=== PATIENT | male | born 1970 | race Caucasian/White ===

== ENCOUNTER 2025-06-22 13:53 | Emergency (ER) | payer MEDICAID ==
[~2025-06-22] VITALS: Ht 177.8 cm; Wt 90.9 kg
[2025-06-22 14:03] VITALS: BP 179/104; PULSE 97; RESP 18; TEMP 98.5; O2SAT 99
--- NOTE | 2025-06-22 14:50 | Physician Documentation ---
History of Present Illness ~ Chief Complaint: Finger pain Stated Complaint: FINGER LAC Time Seen by MD: 15:32 HPI This is a 55-year-old male who presents with a laceration to his left 3rd finger after an accident with a razor knife. Patient reports no injuries and reports no other acute symptoms or concerns. Patient states his last tetanus booster was last year. Medication Reconciliation Allergies: Coded Allergies: No Known Allergies (Unverified , 06/22/25) Review of Systems ROS As stated above in the HPI, otherwise all systems are reviewed and negative. Constitutional: Denies: chills, fever, weakness Eyes: Denies: pain, blurred vision ENT: Denies: ear pain, nose pain, throat pain, mouth pain Respiratory: Denies: cough, shortness of breath Cardiovascular: Denies: chest pain, palpitations Gastrointestinal: Denies: abdominal pain, nausea, vomiting Genitourinary: Denies: burning, dysuria Male Genitalia: Denies: penile discharge, testicular pain Neurological: Denies: headache, dizziness Musculoskeletal: Denies: pain, swelling Integumentary: Denies: rash, lesions Allergic/Immunologic: Denies: hives, itching Hematologic/Lymphatic: Denies: no symptoms reported Psychiatric: Denies: depression, anxiety Physical Exam Vital Signs: Temperature: 98.5, Source: Temporal, Heart Rate: 97, Respiratory Rate: 18, BP: 179/104, Pulse Oximetry: 99, Weight: 90.910 Oxygen Flow Rate: 0 Physical Exam General: Awake and Alert, no acute distress. HEENT: Conjunctiva pink, Sclera clear, Mucus Membranes moist. Neck: Supple without masses and tenderness. Resp: Unlabored. Lungs clear to auscultation bilaterally. Heart: Regular Rate and rhythm, normal S1 and S2 without murmur, rub or gallop. Musculoskeletal Patient on exam has a 1.5 cm laceration on the radial aspect of his left long finger at the level of the distal phalanx. Patient is neurovascularly intact distally. Motor function intact distally. Extremities: No cyanosis,clubbing or edema. Skin: Warm and Dry. Progress Results/Orders Results/Orders Completed Orders - ALYSON ROMAN PAC Lidocaine 1% 30ml Vial (Xylocaine 1% Via (06/22/25 16:01) Vital Signs 06/22/25 14:03 Temp 98.5 Pulse 97 Resp 18 B/P (MAP) 179/104 Pulse Ox 99 O2 Flow Rate 0 Medical Decision Making Findings This is a 55-year-old male who presents with a laceration to his left 3rd finger after an accident with a razor knife. Patient reports no injuries and reports no other acute symptoms or concerns. Patient states his last tetanus booster was last year. Patient did have laceration sutured by myself today. Patient tolerated well. Patient will follow up in seven days for suture removal. Patient will keep dressing clean and dry. Departure Disposition: 01 HOME / SELF CARE / HOMELESS Impression: Primary Impression: Laceration Condition: Improved Discharge Instructions: Laceration Care, Adult, [id number] Additional Instructions: Patient did have laceration sutured by myself today. Patient tolerated well. Patient will follow up in seven days for suture removal. Patient will keep dressing clean and dry. 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
[2025-06-22] MEDS: LIDOcaine 1% 30ml preserv. free vial IJ STA (16:15)
== END 2025-06-22 15:54 | disposition left against medical advice (07) ==
LOC: ER 13:54
DX: S61.213A Laceration without foreign body of left middle finger without damage to nail, initial encounter (principal); X58.XXXA Exposure to other specified factors, initial encounter; Y93.89 Activity, other specified; Y92.89 Other specified places as the place of occurrence of the external cause; Y99.8 Other external cause status
CPT/HCPCS: 12001; 99284

== ENCOUNTER 2025-06-26 11:06 | Outpatient (CLI) | payer MEDICAID ==
--- NOTE | 2025-06-26 12:03 | RADIOLOGY REPORT ---
EXAM: DI KNEE, COMP 4 VW MIN CLINICAL INDICATION: LEFT KNEE PAIN TECHNIQUE: DI KNEE, COMP 4 VW MIN Comparison: None FINDINGS/IMPRESSION: There is no evidence of acute fracture or dislocation. Moderate knee osteoarthritis. The alignment is anatomical. There is no radiopaque foreign body.
== END 2025-06-26 23:59 | disposition home or self-care (01) ==
LOC: RAD 11:06
PROVIDERS: ATTEND Nurse Practitioner
DX: M17.12 Unilateral primary osteoarthritis, left knee (principal); M25.562 Pain in left knee
CPT/HCPCS: 73564